=== PATIENT | male | born 1995 | race African-American/Black ===

== ENCOUNTER 2018-03-01 16:58 | Emergency (ER) | payer OTHER ==
[~2018-03-01] VITALS: Ht 182.9 cm; Wt 111.0 kg
[2018-03-01 17:43] LABS: BASOPHILS % 0.5 % (0.0-2.0); EOSINOPHILS % 0.6 % (0.0-5.0); HEMOGLOBIN. 16.2 g/dL (14.0-18.0); LYMPHOCYTES % 38.7 % (20.0-50.0); MEAN CORPUSCULAR HEMOGLOBIN 31.3 pg (28.0-32.0); MEAN CORPUSCULAR VOLUME 90.8 fL (80.0-94.0); MEAN PLATELET VOLUME 8.3 fl (7.4-10.4); MONOCYTES % 10.1 % (2.0-8.0); NEUTROPHILS % 50.1 % (40.0-76.0); PLATELET 223 x1000/uL (130-400); RED BLOOD CELL COUNT 5.17 mill/uL (4.7-6.1); RED CELL DISTRIBUTION WIDTH 13.7 % (11.6-14.6)
[2018-03-01 17:44] LABS: CHLORIDE 104 mEq/L (98-107)
[2018-03-01] MEDS ORDERED: ACETAMINOPHEN 500MG TABLET PO ONE (19:00)
[2018-03-01 19:30] LABS: CLARITY URINE CLEAR (CLEAR); COLOR URINE YELLOW (YELLOW); KETONES URINE 1+ (NEGATIVE); LEUKOCYTE ESTERASE URINE NEGATIVE (NEGATIVE); NITRITE URINE NEGATIVE (NEGATIVE); OCCULT BLOOD URINE NEGATIVE (NEGATIVE); PROTEIN URINE NEGATIVE (NEGATIVE); SPECIFIC GRAVITY URINE 1.032 (1.005-1.030)
[2018-03-01 19:50] VITALS: BP 129/75
== END 2018-03-01 19:50 | disposition home or self-care (01) ==
LOC: ER 17:19
DX: R51 Headache (principal); F12.10 Cannabis abuse, uncomplicated
CPT/HCPCS: 36415; 80048; 81003; 85025; 99284